=== PATIENT | male | born 1965 | race Caucasian/White ===

== ENCOUNTER 2024-10-14 08:20 | Day surgery (SDC) | payer OTHER ==
[~2024-10-14] VITALS: Ht 172.7 cm; Wt 104.4 kg
[~2024-10-14 08:20] MED LIST: ATOR20TA PO; LOSA-382 PO
[2024-10-14] MEDS: SODIUM CHLORIDE 0.9% 1,000 ML IV ONE (09:05)
[2024-10-14] MEDS ORDERED: PROPOFOL 1% 20 ML VIAL IVP ONE (12:00)
[2024-10-14] MEDS ORDERED: GLYCOPYRROLATE 0.2 MG/ML VIAL ONE (12:00)
== END 2024-10-14 12:50 | disposition home or self-care (01) ==
LOC: SURGERY 08:20
PROVIDERS: ATTEND Internal Medicine
DX: Z12.11 Encounter for screening for malignant neoplasm of colon (principal); D12.4 Benign neoplasm of descending colon; D17.5 Benign lipomatous neoplasm of intra-abdominal organs; I10 Essential (primary) hypertension; F17.210 Nicotine dependence, cigarettes, uncomplicated; K64.8 Other hemorrhoids; Z90.49 Acquired absence of other specified parts of digestive tract; Z98.890 Other specified postprocedural states; Z79.899 Other long term (current) drug therapy
CPT/HCPCS: 45380; 88305; 93005; C1769; J2704; J3490